=== PATIENT | female | born 1950 | race Caucasian/White ===

== ENCOUNTER 2016-03-04 04:57 | Inpatient (IN) | payer OTHER ==
[~2016-03-04] VITALS: Ht 149.9 cm; Wt 64.9 kg
[~2016-03-04 04:57] MED LIST: ASPIRIN81 M2 PO; BENADRYL25 MG PO; BREO ELLIPTA 21 EACH IH; BUPROPION HCL150 M2 PO; COLACE100 MG PO; DULERA 200 MCG/13 GM IH; FISH OIL 1,0001 EAC7 PO; HYDROCODON-ACE1 EAC7 PO; INCRUSE ELLI62.5 MCG IH; METOPROLOL SUCC25 MG PO; METOPROLOL SUCC50 MG PO; METOPROLOL TART25 MG PO; MOBIC7.5 MG PO; PRAVACHOL80 MG PO; PRAVASTATIN SOD80 MG PO; PREDNISONE50 MG PO; PROVENTIL,2.5 MG/0.5 IH; SINGULAIR10 MG PO; TOPROL XL25 MG PO; ULTRAM50 MG PO; VENTOLIN HFA18 GM IH; ZANTAC300 MG PO; ZOCOR40 MG PO
[2016-03-04 06:10] VITALS: BP 138/87
[2016-03-04 06:27] LABS: INTER. NORMALIZED RATIO 1.1; PROTHROMBIN TIME 10.7 (9.2-11.2)
[2016-03-05] VITALS (7 sets, daily range): BP systolic 88–111; BP diastolic 47–59
[2016-03-05 08:16] LABS: HEMATOCRIT 25.7 % (36.0-46.0); MCH 31.2 PG (29.0-34.0); MCHC 33.5 G/DL (30.0-36.0); MCV 93.1 FL (83-99); MEAN PLAT.VOLUME 8.7 uM^3 (9.5-12.4); PLATELET COUNT 199 K/uL (156-360); RBC DIS.WIDTH-CV 13.9 % (11.8-14.6); RBC DIS.WIDTH-SD 46.7 % (39-53); RED BLOOD COUNT 2.76 M/uL (3.80-5.20)
[2016-03-05 08:20] LABS: ANION GAP 4 MEQ/L (2-14); CHLORIDE 104 MEQ/L (99-109); GFR ESTIMATE (CALCULATED) > 59 mL/min/; GLUCOSE 116 mg/dL (70-99); POTASSIUM 4.5 MEQ/L (3.7-5.4); SAMPLE HEMOLYSIS CHECK 0; SAMPLE ICTERIC CHECK 0; SAMPLE LIPEMIA CHECK 0; SODIUM 134 MEQ/L (136-147); UREA NITROGEN (BUN) 9 mg/dL (9-23)
[2016-03-05 17:21] LABS: METH RESISTANT S AUREUS PCR NEGATIVE (NEGATIVE)
[2016-03-05 17:23] LABS: PROBE CHECK PASS; SPECIMEN PROCESSING CONTROL PASS
[2016-03-06] VITALS (22 sets, daily range): BP systolic 63–122; BP diastolic 42–65
[2016-03-06 06:02] LABS: ANION GAP 5 MEQ/L (2-14); CHLORIDE 100 MEQ/L (99-109); GFR ESTIMATE (CALCULATED) > 59 mL/min/; GLUCOSE 94 mg/dL (70-99); POTASSIUM 3.8 MEQ/L (3.7-5.4); SAMPLE HEMOLYSIS CHECK 0; SAMPLE ICTERIC CHECK 0; SAMPLE LIPEMIA CHECK 0; SODIUM 133 MEQ/L (136-147); UREA NITROGEN (BUN) 10 mg/dL (9-23)
[2016-03-06 06:45] LABS: HEMATOCRIT 32.5 % (36.0-46.0); MCH 29.6 PG (29.0-34.0); MCHC 32.9 G/DL (30.0-36.0); MCV 89.8 FL (83-99); MEAN PLAT.VOLUME 8.8 uM^3 (9.5-12.4); PLATELET COUNT 162 K/uL (156-360); RBC DIS.WIDTH-SD 52.4 % (39-53); WHITE BLOOD COUNT 10.1 K/uL (4.1-10.2)
[2016-03-06 06:46] LABS: RED BLOOD COUNT 3.62 M/uL (3.80-5.20)
[2016-03-06 18:39] LABS: EOSINOPHIL (%) 0 % (0-5); HEMATOCRIT 30.4 % (36.0-46.0); IMMATURE GRANULOCYTE (%) 0.3 % (0.0-0.7); LYMPHOCYTE COUNT 0.4 K/uL (1.0-2.8); MCH 30.5 PG (29.0-34.0); MCHC 34.2 G/DL (30.0-36.0); MCV 89.1 FL (83-99); MEAN PLAT.VOLUME 8.6 uM^3 (9.5-12.4); MONOCYTE (%) 6.6 % (3-12); MONOCYTE COUNT 0.6 K/uL (0-0.8); NEUTROPHIL (%) 88.4 % (45-76); NEUTROPHIL COUNT 8.3 K/uL (1.8-6.4); PLATELET COUNT 139 K/uL (156-360); RBC DIS.WIDTH-CV 15.5 % (11.8-14.6); RBC DIS.WIDTH-SD 50.4 % (39-53); RED BLOOD COUNT 3.41 M/uL (3.80-5.20); WHITE BLOOD COUNT 9.4 K/uL (4.1-10.2)
[2016-03-06 18:58] LABS: ANION GAP 8 MEQ/L (2-14); CHLORIDE 100 MEQ/L (99-109); GFR ESTIMATE (CALCULATED) > 59 mL/min/; GLUCOSE 96 mg/dL (70-99); MAGNESIUM 1.3 mg/dl (1.3-2.7); POTASSIUM 3.5 MEQ/L (3.7-5.4); SAMPLE HEMOLYSIS CHECK 0; SAMPLE ICTERIC CHECK 0; SAMPLE LIPEMIA CHECK 0; SODIUM 133 MEQ/L (136-147); UREA NITROGEN (BUN) 11 mg/dL (9-23)
[2016-03-07] VITALS (22 sets, daily range): BP systolic 91–139; BP diastolic 47–72
[2016-03-08] VITALS (15 sets, daily range): BP systolic 95–134; BP diastolic 49–72
[2016-03-08 09:15] LABS: HEMATOCRIT 28.2 % (36.0-46.0); MCH 30.3 PG (29.0-34.0); MCHC 33.7 G/DL (30.0-36.0); MCV 89.8 FL (83-99); MEAN PLAT.VOLUME 8.5 uM^3 (9.5-12.4); PLATELET COUNT 174 K/uL (156-360); RBC DIS.WIDTH-CV 15.4 % (11.8-14.6); RBC DIS.WIDTH-SD 50.4 % (39-53); RED BLOOD COUNT 3.14 M/uL (3.80-5.20); WHITE BLOOD COUNT 9.9 K/uL (4.1-10.2)
[2016-03-08 09:45] LABS: ANION GAP 9 MEQ/L (2-14); CHLORIDE 99 MEQ/L (99-109); POTASSIUM 3.6 MEQ/L (3.7-5.4); SAMPLE HEMOLYSIS CHECK 0; SAMPLE ICTERIC CHECK 0; SAMPLE LIPEMIA CHECK 0; SODIUM 136 MEQ/L (136-147)
[2016-03-08 09:51] LABS: GFR ESTIMATE (CALCULATED) > 59 mL/min/; GLUCOSE 92 mg/dL (70-99); UREA NITROGEN (BUN) 8 mg/dL (9-23)
[2016-03-09] VITALS (20 sets, daily range): BP systolic 91–129; BP diastolic 45–76
[2016-03-09 06:13] LABS: HEMATOCRIT 29.2 % (36.0-46.0); MCH 30.2 PG (29.0-34.0); MCHC 33.6 G/DL (30.0-36.0); MCV 90.1 FL (83-99); MEAN PLAT.VOLUME 8.8 uM^3 (9.5-12.4); PLATELET COUNT 218 K/uL (156-360); RBC DIS.WIDTH-CV 15.2 % (11.8-14.6); RBC DIS.WIDTH-SD 50.7 % (39-53); RED BLOOD COUNT 3.24 M/uL (3.80-5.20)
[2016-03-09 06:16] LABS: ANION GAP 4 MEQ/L (2-14); CHLORIDE 98 MEQ/L (99-109); GFR ESTIMATE (CALCULATED) > 59 mL/min/; GLUCOSE 104 mg/dL (70-99); SAMPLE HEMOLYSIS CHECK 0; SAMPLE ICTERIC CHECK 0; SAMPLE LIPEMIA CHECK 0; SODIUM 131 MEQ/L (136-147); UREA NITROGEN (BUN) 7 mg/dL (9-23)
[2016-03-09 06:22] LABS: WHITE BLOOD COUNT 13.7 K/uL (4.1-10.2)
[2016-03-10] VITALS (12 sets, daily range): BP systolic 82–128; BP diastolic 43–62
[2016-03-10 05:33] LABS: HEMATOCRIT 27.5 % (36.0-46.0); MCH 30.5 PG (29.0-34.0); MCHC 34.2 G/DL (30.0-36.0); MCV 89.3 FL (83-99); MEAN PLAT.VOLUME 9.1 uM^3 (9.5-12.4); PLATELET COUNT 222 K/uL (156-360); RBC DIS.WIDTH-CV 14.9 % (11.8-14.6); RBC DIS.WIDTH-SD 48.4 % (39-53); RED BLOOD COUNT 3.08 M/uL (3.80-5.20); WHITE BLOOD COUNT 10.2 K/uL (4.1-10.2)
[2016-03-10 06:05] LABS: ANION GAP 8 MEQ/L (2-14); CHLORIDE 95 MEQ/L (99-109); GFR ESTIMATE (CALCULATED) > 59 mL/min/; POTASSIUM 3.6 MEQ/L (3.7-5.4); SAMPLE HEMOLYSIS CHECK 0; SAMPLE ICTERIC CHECK 0; SAMPLE LIPEMIA CHECK 0; SODIUM 135 MEQ/L (136-147); UREA NITROGEN (BUN) 11 mg/dL (9-23)
[2016-03-10 06:22] LABS: GLUCOSE 160 mg/dL (70-99); MAGNESIUM 1.7 mg/dl (1.3-2.7)
[2016-03-11] VITALS: BP 105/53
[2016-03-11 04:00] VITALS: BP 91/49
[2016-03-11 05:45] LABS: HEMATOCRIT 30.7 % (36.0-46.0); MCH 30.1 PG (29.0-34.0); MCHC 33.2 G/DL (30.0-36.0); MCV 90.6 FL (83-99); MEAN PLAT.VOLUME 9.3 uM^3 (9.5-12.4); RBC DIS.WIDTH-CV 15.4 % (11.8-14.6); RBC DIS.WIDTH-SD 51.1 % (39-53); RED BLOOD COUNT 3.39 M/uL (3.80-5.20)
[2016-03-11 05:48] LABS: PLATELET COUNT 328 K/uL (156-360); WHITE BLOOD COUNT 16.5 K/uL (4.1-10.2)
[2016-03-11 05:57] LABS: ANION GAP 6 MEQ/L (2-14); CHLORIDE 98 MEQ/L (99-109); GFR ESTIMATE (CALCULATED) > 59 mL/min/; SAMPLE HEMOLYSIS CHECK 0; SAMPLE ICTERIC CHECK 0; SAMPLE LIPEMIA CHECK 0; SODIUM 137 MEQ/L (136-147); UREA NITROGEN (BUN) 15 mg/dL (9-23)
[2016-03-11 06:00] LABS: 6-HOUR TOBRAMYCIN 5.8 UG/ML; GLUCOSE 85 mg/dL (70-99)
[2016-03-11 08:00] VITALS: BP 101/51
[2016-03-11 12:00] VITALS: BP 102/50
[2016-03-11 16:00] VITALS: BP 113/56
[2016-03-11 20:00] VITALS: BP 114/57
[2016-03-12] VITALS (11 sets, daily range): BP systolic 106–143; BP diastolic 51–77
[2016-03-13] VITALS (9 sets, daily range): BP systolic 104–132; BP diastolic 52–67
[2016-03-14] VITALS (9 sets, daily range): BP systolic 111–170; BP diastolic 53–83
[2016-03-15] VITALS (8 sets, daily range): BP systolic 95–134; BP diastolic 54–94
[2016-03-16] VITALS (8 sets, daily range): BP systolic 93–120; BP diastolic 51–64
[2016-03-16 06:06] LABS: MCH 29.1 PG (29.0-34.0); MCHC 32.9 G/DL (30.0-36.0); MCV 88.6 FL (83-99); MEAN PLAT.VOLUME 8.9 uM^3 (9.5-12.4); PLATELET COUNT 413 K/uL (156-360); RBC DIS.WIDTH-CV 15.6 % (11.8-14.6); RBC DIS.WIDTH-SD 49.7 % (39-53); WHITE BLOOD COUNT 17.7 K/uL (4.1-10.2)
[2016-03-16 06:47] LABS: ANION GAP 8 MEQ/L (2-14); GFR ESTIMATE (CALCULATED) > 59 mL/min/; GLUCOSE 98 mg/dL (70-99); POTASSIUM 3.7 MEQ/L (3.7-5.4); SAMPLE HEMOLYSIS CHECK 0; SAMPLE ICTERIC CHECK 0; SAMPLE LIPEMIA CHECK 0; UREA NITROGEN (BUN) 14 mg/dL (9-23)
[2016-03-16 06:48] LABS: CHLORIDE 83 MEQ/L (99-109); SODIUM 122 MEQ/L (136-147)
[2016-03-17] VITALS: BP 104/62
[2016-03-17 04:00] VITALS: BP 116/97
[2016-03-17 05:35] LABS: ANION GAP 7 MEQ/L (2-14); CHLORIDE 87 MEQ/L (99-109); GFR ESTIMATE (CALCULATED) > 59 mL/min/; GLUCOSE 98 mg/dL (70-99); POTASSIUM 3.9 MEQ/L (3.7-5.4); SAMPLE HEMOLYSIS CHECK 0; SAMPLE ICTERIC CHECK 0; SAMPLE LIPEMIA CHECK 0; SODIUM 124 MEQ/L (136-147); UREA NITROGEN (BUN) 13 mg/dL (9-23)
[2016-03-17 08:05] VITALS: BP 105/48
[2016-03-17 12:10] VITALS: BP 102/58
[2016-03-17 16:05] VITALS: BP 108/59
[2016-03-17 20:00] VITALS: BP 108/61
[2016-03-18] VITALS (8 sets, daily range): BP systolic 98–124; BP diastolic 50–59
[2016-03-18 06:39] LABS: HEMATOCRIT 29.5 % (36.0-46.0); MCH 29.9 PG (29.0-34.0); MCHC 33.2 G/DL (30.0-36.0); MCV 89.9 FL (83-99); MEAN PLAT.VOLUME 8.8 uM^3 (9.5-12.4); PLATELET COUNT 375 K/uL (156-360); RBC DIS.WIDTH-CV 15.3 % (11.8-14.6); RBC DIS.WIDTH-SD 49.9 % (39-53); RED BLOOD COUNT 3.28 M/uL (3.80-5.20); WHITE BLOOD COUNT 12.4 K/uL (4.1-10.2)
[2016-03-18 06:43] LABS: ANION GAP 2 MEQ/L (2-14); CHLORIDE 92 MEQ/L (99-109); GFR ESTIMATE (CALCULATED) > 59 mL/min/; GLUCOSE 109 mg/dL (70-99); POTASSIUM 3.7 MEQ/L (3.7-5.4); SAMPLE HEMOLYSIS CHECK 0; SAMPLE ICTERIC CHECK 0; SAMPLE LIPEMIA CHECK 0; SODIUM 126 MEQ/L (136-147); UREA NITROGEN (BUN) 9 mg/dL (9-23)
[2016-03-19] VITALS (10 sets, daily range): BP systolic 109–129; BP diastolic 46–74
[2016-03-19 06:35] LABS: ANION GAP 7 MEQ/L (2-14); CHLORIDE 93 MEQ/L (99-109); GFR ESTIMATE (CALCULATED) > 59 mL/min/; GLUCOSE 103 mg/dL (70-99); POTASSIUM 3.6 MEQ/L (3.7-5.4); SAMPLE HEMOLYSIS CHECK 0; SAMPLE ICTERIC CHECK 0; SAMPLE LIPEMIA CHECK 0; SODIUM 129 MEQ/L (136-147); UREA NITROGEN (BUN) 7 mg/dL (9-23)
[2016-03-19] MEDS ORDERED: DIGOXIN125 MCG PO (18:24)
[2016-03-19] MEDS ORDERED: NORCO 5/3251 TABLET PO (18:24)
[2016-03-19] MEDS ORDERED: DOCUSATE SODIU100 MG PO (18:28)
[2016-03-19] MEDS ORDERED: PREDNISONE10 MG PO (18:28)
[2016-03-19] MEDS ORDERED: MUCINEX600 MG PO (18:28)
== END 2016-03-19 20:23 | disposition home health service (06) | DRG 163 ==
LOC: 2SOUTH 04:57 → 4WEST 05:19 → 2SOUTH 05:19 → 4WEST 03-05 15:31 → 4EAST 03-08 21:42 → 4WEST 03-09 00:04
PROVIDERS: Internal Medicine Nephrology; Thoracic Surgery (Cardiothoracic Vascular Surgery)
PROC: 0BBK0ZZ Excision of Right Lung, Open Approach (ICD-10-PCS; principal; 2016-03-04)
PROC: 30233N1 Transfusion of Nonautologous Red Blood Cells into Peripheral Vein, Percutaneous Approach (ICD-10-PCS; 2016-03-04)
DX: C34.11 Malignant neoplasm of upper lobe, right bronchus or lung (principal); J96.01 Acute respiratory failure with hypoxia; E87.1 Hypo-osmolality and hyponatremia; J93.9 Pneumothorax, unspecified; J98.11 Atelectasis; J44.1 Chronic obstructive pulmonary disease with (acute) exacerbation; E78.5 Hyperlipidemia, unspecified; I25.10 Atherosclerotic heart disease of native coronary artery without angina pectoris; I10 Essential (primary) hypertension; D64.9 Anemia, unspecified; E66.9 Obesity, unspecified; K21.9 Gastro-esophageal reflux disease without esophagitis; Z68.34 Body mass index [BMI] 34.0-34.9, adult; Z87.891 Personal history of nicotine dependence; Z98.61 Coronary angioplasty status; Z88.5 Allergy status to narcotic agent
CPT/HCPCS: 71010; 71020; 74230; 80048; 80048 91; 80200; 83605; 83735; 84100; 85025; 85027; 85610; 86850; 86900; 86901; 86920; 87040; 87070; 87077; 87086; 87106; 87186; 87205; 87641; 88302; 88305; 88309; 88313; 92507 GN; 92526 GN; 92611 GN; 93970; 94002; 94003; 94010; 94640; 94640 76; 94667; 94668; 94760; 94799; 97530 GO; 97530 GP; 99202; J0131; J0690; J1100; J1160; J1170; J1644; J1885; J1940; J1956; J2250; J2405; J2543; J2765; J2795; J2930; J3010; J3260; J7030; J7050; J7120; J7512; J7608; P9016; P9045; P9047

== ENCOUNTER 2016-05-05 15:30 | Observation (INO) | payer OTHER ==
[~2016-05-05] VITALS: Ht 149.9 cm; Wt 66.0 kg
[~2016-05-05 15:30] MED LIST changes: +DIGOXIN125 MCG PO; +DOCUSATE SODIU100 MG PO; +MUCINEX600 MG PO; +NORCO 5/3251 TABLET PO; +PREDNISONE10 MG PO
[2016-05-05 16:25] LABS: EOSINOPHIL (%) 1.7 % (0-5); EOSINOPHIL COUNT 0.2 K/uL (0-0.3); HEMATOCRIT 35.9 % (36.0-46.0); IMMATURE GRANULOCYTE COUNT 1.2 K/uL; MCH 28.4 PG (29.0-34.0); MCHC 31.8 G/DL (30.0-36.0); MCV 89.3 FL (83-99); MEAN PLAT.VOLUME 8.2 uM^3 (9.5-12.4); MONOCYTE (%) 9.1 % (3-12); MONOCYTE COUNT 1.1 K/uL (0-0.8); NEUTROPHIL (%) 54.3 % (45-76); NEUTROPHIL COUNT 6.4 K/uL (1.8-6.4); PLATELET COUNT 377 K/uL (156-360); RBC DIS.WIDTH-CV 14.9 % (11.8-14.6); RBC DIS.WIDTH-SD 47.2 % (39-53); RED BLOOD COUNT 4.02 M/uL (3.80-5.20); WHITE BLOOD COUNT 11.9 K/uL (4.1-10.2)
[2016-05-05 16:33] LABS: CHLORIDE 103 mEq/L (99-109); POTASSIUM 4.1 mEq/L (3.7-5.4); SODIUM 139 mEq/L (136-147)
[2016-05-05 16:35] LABS: GLUCOSE 103 mg/dL (70-99)
[2016-05-05 16:36] LABS: ANION GAP 8 MEQ/L (2-14)
[2016-05-05 16:37] LABS: TOTAL BILIRUBIN 0.2 mg/dL (0.0-1.0)
[2016-05-05 16:39] LABS: ALKALINE PHOSPHATASE 63 IU/L (3-129); GFR ESTIMATE (CALCULATED) 59 mL/min/
[2016-05-05 16:40] LABS: UREA NITROGEN (BUN) 5 mg/dL (9-23)
[2016-05-05 16:42] LABS: LIPASE 16 U/L (1.0-51.0)
[2016-05-05 16:44] LABS: D-DIMER ELISA > 4.00 mg/L FEU (< 0.57)
[2016-05-05 16:48] LABS: TROP-I INTERPRETATION NEGATIVE; TROPONIN-I < 0.01 ng/mL (0.0-0.30)
[2016-05-05] MEDS ORDERED: LOPRESSOR50 MG PO (20:32)
[2016-05-05] MEDS ORDERED: OMEPRAZOLE40 M1 PO (20:33)
[2016-05-05] MEDS ORDERED: ZANTAC300 MG PO (20:33)
[2016-05-05] MEDS ORDERED: REGLAN5 MG PO (20:33)
[2016-05-05 22:30] VITALS: BP 121/66
[2016-05-06 00:57] LABS: TROP-I INTERPRETATION NEGATIVE; TROPONIN-I < 0.01 ng/mL (0.0-0.30)
[2016-05-06 03:58] VITALS: BP 116/59
[2016-05-06 06:42] LABS: TROP-I INTERPRETATION NEGATIVE; TROPONIN-I < 0.01 ng/mL (0.0-0.30)
[2016-05-06 07:35] VITALS: BP 110/66
[2016-05-06] MEDS ORDERED: AZITHROMYCIN500 M1 PO (10:39)
[2016-05-06] MEDS ORDERED: DELTASONE20 M1 PO (10:39)
[2016-05-06] MEDS ORDERED: GUAIFENESIN WI120 M1 PO (10:39)
[2016-05-06] MEDS ORDERED: TYLENOL REGULA325 MG PO (10:39)
== END 2016-05-06 12:08 | disposition home or self-care (01) ==
LOC: EME 15:30 → EDOF 20:23 → 5WEST 20:23
PROVIDERS: Emergency Medicine; Physician Assistant Medical
DX: R07.89 Other chest pain (principal); J44.0 Chronic obstructive pulmonary disease with (acute) lower respiratory infection; J20.9 Acute bronchitis, unspecified; C34.11 Malignant neoplasm of upper lobe, right bronchus or lung; R10.9 Unspecified abdominal pain; E78.5 Hyperlipidemia, unspecified; I25.10 Atherosclerotic heart disease of native coronary artery without angina pectoris; Z95.5 Presence of coronary angioplasty implant and graft; I10 Essential (primary) hypertension; K21.9 Gastro-esophageal reflux disease without esophagitis; F17.210 Nicotine dependence, cigarettes, uncomplicated
CPT/HCPCS: 71010; 71275; 80053; 83690; 84484; 85025; 85379; 93005; 94640; 99202; 99281; 99285; G0378; J1650; J2930; J7512